=== PATIENT | female | born 1945 | race Hispanic/Latino ===

== ENCOUNTER 2020-10-08 07:12 | Day surgery (SDC) | payer MEDICARE ==
[2020-10-07 14:18] LABS: Absolute Lymphocytes (CBC) 2.7 K/uL (0.7-4.9); Basophils % 0.9 % (0-1.3); Hematocrit 35.8 % (36.0-45.0); Lymphocytes % 34.6 % (15.3-44.8); MPV 8.9 fL (7.6-11.3); RBC Red Blood Cell Count 4.01 M/uL (3.86-4.86)
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
[2020-10-07 14:38] LABS: Potassium 3.1 mmol/L (3.5-5.1)
[2020-10-08] MEDS ORDERED: LIDOCAINE 1% MPF 30 ML VIAL ONE (07:44)
[2020-10-08] MEDS ORDERED: CEFAZOLIN/SWI 1gm 1 GM/10 ML SYR ONE (07:51)
[2020-10-08] MEDS ORDERED: NA CHLORIDE 0.9% 1,000 ML ONE (07:51)
[2020-10-08] MEDS ORDERED: LIDOCAINE 1% MPF 5 ML VIAL ONE (08:39)
[2020-10-08] MEDS ORDERED: FENTANYL CITR 100 MCG/2 ML ONE (08:39)
[2020-10-08] MEDS ORDERED: propofoL 200 MG/20 ML VIAL IV ONE ×2 (08:39→08:40)
[2020-10-08] MEDS ORDERED: ONDANSETRON 4 MG/2 ML VIAL ONE (09:01)
[2020-10-08 10:08] VITALS: BP 117/57; TEMP 97.4; O2SAT 99
--- NOTE | 2020-10-08 11:22 | OP ---
Date of Procedure: 10/08/2020 Surgeon: Kar Gant MD Major Assembly Inspector: IVONE Santa. Preoperative Diagnosis: Right eye vision change, rule out temporal arteritis. Postoperative Diagnosis: Right eye vision change, rule out temporal arteritis. Procedure: Right temporal artery biopsy, utilization of a Doppler device. Estimated Blood Loss: Minimal. Specimen: Branch of the right temporal artery. Finding: As above. Anesthesia: MAC. Complications: None. Disposition: The patient tolerated the procedure in stable condition and taken to Recovery in good g eneral condition. Procedure In Detail: The patient was brought to the OR and placed in supine position. MAC anesthesi a was begun. The patient was prepped and draped in usual sterile fashion. Doppler device was used t o the isolated branch of the right temporal artery anterior and superior to the right ear and then li docaine 1% infiltrated locally. A 15-blade was used to make a 4 cm incision over the area. Subcutan eous tissue was divided. Branch of the temporal artery identified. Proximal and distal control was obtained with sharp and blunt dissection. Bleeding was controlled with cautery and then both ends ti ed off with 4-0 silk ties and then a 4 cm segment of a branch of the temporal artery excised and sent to Pathology. Wound was irrigated. Bleeding was controlled with cautery. A 4-0 chromic was used t o approximate the subcutaneous tissue and close the skin. Sterile dressing was applied. The patient was awakened and taken to Recovery in good general condition. Discharge Note: The patient will go to Day Surgery and home when stable. Disposition: Home. Condition: Stable. Discharge Instructions: Resume home medications and diet. Activity as tolerated. No heavy lifting. Remove outer dressing in 2 days. Shower. Keep wound clean and dry. Keep Steri-Strips on at all t imes. Follow up in my office in 2 weeks. Call for appointment. Follow with Dr. Shah in 1 week. Tylenol No. 3 one tablet p.o. q.4 p.r.n. pain. /MODL Voice ID: [id number] Report ID: [id number]
--- NOTE | 2020-10-09 07:41 | EKG ---
Test Date: 2020-10-07 Test Time: 13:32:39 Wheel Setter: WILLIE MEASUREMENT RESULTS: Intervals: Rate: 64 MD: 160 QRSD: 104 QT: 404 QTc: 416 [place]: P: 50 MD: 160 QRS: -1 T: 31 INTERPRETIVE STATEMENTS: Normal sinus rhythm Normal ECG Compared to ECG 01/23/2018 08:55:48 Sinus bradycardia no longer present Electronically Signed On 10-09-20 07:35:20 CDT by Yonas Vale
== END 2020-10-08 10:30 | disposition home or self-care (01) ==
LOC: OR 07:12
PROVIDERS: ATTEND Surgery
PROC: 03BS0ZX Excision of Right Temporal Artery, Open Approach, Diagnostic (ICD-10-PCS; principal; 2020-10-08 08:00)
DX: H53.9 Unspecified visual disturbance (principal); I70.8 Atherosclerosis of other arteries; Z20.822 Contact with and (suspected) exposure to COVID-19
CPT/HCPCS: 37609; 93005; 85025; 80048; 36415; 82947; 88305; 71045; U0003; J2704 ×2; J3010; J0690; J7030; J2405

== ENCOUNTER 2021-04-09 16:57 | Emergency (ER) | payer OTHER ==
[2021-04-09] MEDS ORDERED: DERMABOND SKIN ADHESIVE TOP ONE (17:27)
[2021-04-09 17:53] LABS: Absolute Lymphocytes (CBC) 1.9 K/uL (0.7-4.9); Basophils % 0.8 % (0-1.3); Hematocrit 35.9 % (36.0-45.0); MPV 8.7 fL (7.6-11.3); RBC Red Blood Cell Count 4.04 M/uL (3.86-4.86)
[2021-04-09 18:01] LABS: Protime INR 1.09
[2021-04-09 18:13] LABS: ALT/SGPT 38 U/L (12-78); AST/SGOT 26 U/L (15-37); Albumin 3.4 g/dL (3.4-5.0); Alkaline Phosphatase 70 U/L (45-117); BUN Blood Urea Nitrogen 25 mg/dL (7-18); Bicarbonate 30 mmol/L (21-32); Bilirubin Direct < 0.1 mg/dL (0-0.2); Bilirubin Total 0.3 mg/dL (0.2-1.0); Glucose Level 185 mg/dL (74-106); Lipase 117 U/L (73-393); Protein, Total 7.3 g/dL (6.4-8.2); Sodium Level 140 mmol/L (136-145); Troponin (Emerg Dept Use Only) < 0.02 ng/mL (0.0-0.045)
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
[2021-04-09] MEDS ORDERED: ACETAMINOPHEN 500 MG TAB ONE (19:38)
[2021-04-09] MEDS ORDERED: IBUPROFEN 400 MG TAB ONE (19:38)
[2021-04-09 20:04] VITALS: TEMP 98.2
[2021-04-09 20:05] VITALS: BP 159/72; O2SAT 98
--- NOTE | 2021-04-11 11:46 | EKG ---
Test Date: 2021-04-09 Test Time: 17:54:06 Ironer Hand: KAREY MEASUREMENT RESULTS: Intervals: Rate: 71 SD: 150 QRSD: 92 QT: 398 QTc: 432 [place]: P: 58 SD: 150 QRS: 28 T: 55 INTERPRETIVE STATEMENTS: Sinus rhythm with premature ventricular complexes or fusion complexes Incomplete right bundle branch block Borderline ECG Compared to ECG 10/07/2020 13:32:39 Fusion complex(es) now present Ventricular premature complex(es) now present Incomplete right bundle-branch block now present Electronically Signed On 04-11-21 11:44:40 CDT by Yonas Vale
== END 2021-04-09 19:59 | disposition home or self-care (01) ==
LOC: ER 16:57
DX: S00.83XA Contusion of other part of head, initial encounter (principal); R07.9 Chest pain, unspecified; M79.662 Pain in left lower leg; M79.661 Pain in right lower leg; V49.40XA Driver injured in collision with unspecified motor vehicles in traffic accident, initial encounter; E11.9 Type 2 diabetes mellitus without complications; E03.9 Hypothyroidism, unspecified
CPT/HCPCS: 93005; 85025; 80048; 36415; 85610; 80076; 85730; 84484; 83690; 70450; 72125; 71260; 70486; 76377; 74177; 71045; 73590 ×2; 99284; Q9967

== ENCOUNTER 2021-05-04 22:13 | Emergency (ER) | payer OTHER ==
[2021-05-04] MEDS ORDERED: METHYLPREDNISOLONE 125 MG INJ ONE (22:42)
[2021-05-04] MEDS ORDERED: LEVALBUTEROL 1.25 MG/3 ML NEB ONE (22:43)
[2021-05-04 23:24] LABS: Absolute Lymphocytes (CBC) 2.9 K/uL (0.7-4.9); Basophils % 0.7 % (0-1.3); Hematocrit 38.9 % (36.0-45.0); Lymphocytes % 31.3 % (15.3-44.8); MPV 8.5 fL (7.6-11.3); RBC Red Blood Cell Count 4.28 M/uL (3.86-4.86)
[2021-05-04 23:26] LABS: Protime INR 0.98
[2021-05-04 23:41] LABS: ALT/SGPT 31 U/L (12-78); AST/SGOT 22 U/L (15-37); Albumin 3.8 g/dL (3.4-5.0); Alkaline Phosphatase 92 U/L (45-117); BUN Blood Urea Nitrogen 15 mg/dL (7-18); Bicarbonate 26 mmol/L (21-32); Bilirubin Direct < 0.1 mg/dL (0-0.2); Bilirubin Total 0.3 mg/dL (0.2-1.0); Glucose Level 143 mg/dL (74-106); NT PRO-BNP 199 pg/mL (<125); Potassium 3.5 mmol/L (3.5-5.1); Protein, Total 8.2 g/dL (6.4-8.2); Sodium Level 139 mmol/L (136-145); Troponin (Emerg Dept Use Only) < 0.02 ng/mL (0.0-0.045)
[2021-05-05 00:07] LABS: SARS-COV-2 RT PCR NEGATIVE (NEGATIVE)
--- NOTE | 2021-05-05 02:10 | ER ---
Nurse's Notes [facility] Name: Bessie Nieves Age: 75 yrs Sex: Female : 1945 Arrival Date: 05/04/2021 Time: 22:19 Bed 6 Private MD: Diagnosis: Unspecified asthma with (acute) exacerbation Presentation: 05/04 22:50 Note Breathing trt started. LS bilateral wheeze. df1 22:57 Chief complaint: Patient states: SOB starting at 2130. Coronavirus screen: Vaccine df1 status: Patient reports receiving the 2nd dose of the covid vaccine. Client denies travel out of the [place] in the last 14 days. Client presents with at least one sign or symptom that may indicate coronavirus-19. Standard/surgical mask placed on the client. Ebola Screen: Patient negative for fever greater than or equal to 101.5 degrees Fahrenheit, and additional compatible Ebola Virus Disease symptoms Patient denies exposure to infectious person. Patient denies travel to an Ebola-affected area in the 21 days before illness onset. Initial Sepsis Screen: Does the patient meet any 2 criteria? No. Patient's initial sepsis screen is negative. Does the patient have a suspected source of infection? No. Patient's initial sepsis screen is negative. Risk Assessment: Do you want to hurt yourself or someone else? Patient reports no desire to harm self or others. Onset of symptoms was May 04, 2021 at 21:30. 22:57 Method Of Arrival: Ambulatory df1 22:57 Acuity: JUSTUS 3 df1 23:17 Note Breathing trt completed. LS CTA. Resp even and unlabored. Pt states "I feel df1 better. Easier to breath". Pt to CT scan. Triage Assessment: 23:13 General: Appears uncomfortable, Behavior is calm, cooperative. Respiratory: Reports df1 shortness of breath at rest Onset: The symptoms/episode began/occurred today, the patient has mild shortness of breath. Historical: - Allergies: 23:10 No Known Allergies; df1 - Home Meds: 23:10 levothyroxine oral [Active]; Metformin Oral [Active]; Trazodone Oral [Active]; df1 - PMHx: 23:10 diabetes mellitus; Hypothyroidism; insomnia; htn; Asthma; df1 - PSHx: 23:10 back surgery; partial hepatectomy; df1 - Immunization history:: Adult Immunizations not up to date, Client reports receiving the 2nd dose of the Covid vaccine. - Social history:: Smoking status: Patient denies any tobacco usage or history of. Patient/guardian denies using alcohol, street drugs. - Family history:: not pertinent. - Hospitalizations: : No recent hospitalization is reported. Screenin:12 Abuse screen: Denies threats or abuse. Nutritional screening: No deficits noted. df1 Tuberculosis screening: No symptoms or risk factors identified. Fall Risk None identified. Assessment: 23:12 Pain: Complains of pain in right upper quadrant and right lower quadrant Pain currently df1 is 8 out of 10 on a pain scale. Cardiovascular: No deficits noted. Rhythm is regular. Respiratory: Airway is patent Respiratory effort is even, labored, Respiratory pattern is regular, symmetrical, Breath sounds with wheezes bilaterally. Vital Signs: 22:56 BP 129 / 70; Pulse 63; Resp 18; Pulse Ox 99% on R/A; df1 22:57 BP 129 / 70; Pulse 75; Resp 24; Temp 98.5; Pulse Ox 99% on R/A; Weight 65.77 kg; Height df1 5 ft. 3 in. (160.02 cm); Pain 8/10; 05/05 01:05 BP 126 / 66; Pulse 69; Resp 18; Pulse Ox 99% on R/A; Pain 0/10; df1 11 22:57 Body Mass Index 25.69 (65.77 kg, 160.02 cm) df1 ED Course: 05/04 22:19 Patient arrived in ED. bp1 22:22 Ruiz Montez MD is Attending Physician. rn 22:25 Jordi Albarran, IRAM is Primary Nurse. mr2 22:47 Procalcitonin Sent. mr2 22:47 Procalcitonin Sent. mr2 22:47 Basic Metabolic Panel Sent. mr2 22:47 BMP Sent. mr2 22:54 XRAY CXR (1 view) Sent. df1 22:55 Blood Culture Adult (2) Sent. df1 22:55 CBC with Diff Sent. df1 22:55 Hepatic Function Sent. df1 22:55 NT PRO-BNP Sent. df1 22:55 PT-INR Sent. df1 22:55 Ptt, Activated Sent. df1 22:55 Troponin (emerg Dept Use Only) Sent. df1 22:55 No provider procedures requiring assistance completed. Inserted saline lock: 18 gauge df1 in right antecubital area, using aseptic technique. 22:58 XRAY CXR (1 view) In Process Unspecified. EDMS 23:06 Triage completed. df1 23:13 Arm band placed on right wrist. df1 23:14 Patient has correct armband on for positive identification. Placed in gown. Bed in low df1 position. Call light in reach. Side rails up X 1. Adult w/ patient. school bus monitor on. Pulse ox on. NIBP on. 23:33 CT Chest For PE Angio In Process Unspecified. EDMS 05/05 01:04 Troponin (emerg Dept Use Only) Sent. df1 02:22 IV discontinued. mr2 Administered Medications: 05/04 22:54 Drug: SOLU-Medrol (methylPrednisoLONE) 125 mg Route: IVP; Site: right antecubital; df1 23:21 Follow up: Response: No adverse reaction df1 22:54 Drug: Xopenex (levalbuterol) (3) 1.25 mg Route: Inhalation; df1 23:20 Follow up: Response: Wheezing diminished df1 Outcome: 05/05 02:09 Discharge ordered by . rn 02:22 Discharged to home ambulatory. mr2 02:22 Condition: stable 02:22 Discharge instructions given to patient, Instructed on discharge instructions, follow up and referral plans. medication usage, Prescriptions given X 2. 02:22 Patient left the ED. mr2 Signatures: Dispatcher [employer] EDMS Ruiz Montez MD MD rn [place], Brittany bp1 Reynard, Mike, RN RN mr2 Regina Dwyer df1 Corrections: (The following items were deleted from the chart) 05/04 23:15 22:47 Influenza Screen (A \\T\\ B)+BA.LAB.BRZ drawn and sent. mr2 EDMS 23:17 22:47 SARS-COV-2 RT PCR+MOL.LAB.BRZ drawn and sent. mr2 EDMS 23:17 23:14 Note Breathing trt started. LS bilateral wheeze. df1 df1
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
[2021-05-05 02:29] VITALS: O2SAT 99
[2021-05-05 02:31] VITALS: TEMP 98.5
[2021-05-05 02:33] VITALS: BP 126/66
--- NOTE | 2021-05-05 12:27 | RAD REPORT ---
EXAM DESCRIPTION: Chest For Pe Angio 05/04/2021 11:50 PM HAZ TECH CLINICAL HISTORY: 75 years, Female, DYSPNEA COMPARISON: None. TECHNIQUE: Multiple transaxial tomograms of the chest were obtained from the lung apices through the lung bases utilizing 2 mm slice thickness at 2 mm interval reconstruction after the administration o f large bolus of IV contrast for complete opacification of the pulmonary arteries. Subsequent maximum intensity projection images were generated in the coronal and sagittal plane for r eview. This exam was performed according to our departmental dose-optimization protocol, which includes auto mated exposure control, adjustment of the mA and/or kV according to patient size and/or use of iterat darlene reconstruction technique. FINDINGS: The lungs parenchyma demonstrate to be clear. No masses, nodules and/or consolidations are identified. Minimal dependent atelectatic changes posterior CP angles. The trachea mainstem bronchus demonstrate to be normal. There is no significant pericardial or pleura l effusions. The thoracic aorta demonstrate intimal calcification at the aortic arch and descending portion. There is no evidence for aneurysm/or dissection. The heart is normal in size. No evidence for right ventri cular strain. There are minimal coronary artery calcifications. There is no significant mediastinal and/or hilar lymphadenopathy. The axillary regions demonstrate to be clear. Pulmonary arteries demonstrate to be normal, no intraluminal defect are seen that would suggest pulmo nary embolus. The bone windows demonstrate no significant skeletal lesions. The visualized portions of the upper abdomen demonstrate status post surgical changes of the right he patectomy. IMPRESSION: No evidence for pulmonary embolism and/or thoracic aortic dissection. Minimal coronary artery calcifications. Status post surgical changes of the right hepatectomy. Electronically signed by: Imtiaz De Guzman MD 05/04/2021 11:56 PM HAZ TECH Due to temporary technical issues with the PACS/Fluency reporting system, reports are being signed by the in house radiologist without review as a courtesy to ensure prompt reporting. The interpreting r adiologist is fully responsible for the content of the report.
--- NOTE | 2021-05-06 11:24 | EKG ---
Test Date: 2021-05-05 Test Time: 00:58:18 Box Toe Buffer: MEASUREMENT RESULTS: Intervals: Rate: 67 MD: 160 QRSD: 102 QT: 426 QTc: 450 [place]: P: 43 MD: 160 QRS: -12 T: 14 INTERPRETIVE STATEMENTS: Normal sinus rhythm Normal ECG Compared to ECG 04/09/2021 17:54:06 Fusion complex(es) no longer present Ventricular premature complex(es) no longer present Incomplete right bundle-branch block no longer present Electronically Signed On 05-06-21 11:20:40 YOUTH SUPPORT WORKER by Yonas Vale
--- NOTE | 2021-05-06 11:24 | EKG ---
Test Date: 2021-05-04 Test Time: 22:37:58 Claim Benefit Specialist: MEASUREMENT RESULTS: Intervals: Rate: 70 MA: 150 QRSD: 98 QT: 390 QTc: 421 [employer]: P: 52 MA: 150 QRS: 46 T: 47 INTERPRETIVE STATEMENTS: Normal sinus rhythm Normal ECG Compared to ECG 04/09/2021 17:54:06 Fusion complex(es) no longer present Ventricular premature complex(es) no longer present Incomplete right bundle-branch block no longer present Electronically Signed On 05-06-21 11:20:43 PHYS ASST by Yonas Vale
--- OUTSIDE RECORDS SUMMARY | 2021-05-09 17:33 | XMS REPORT | Continuity of Care Document ---
:1945 Author Organization [facility] t Address [address] [place] [address] Care Team Providers Name Role Phone Tiago WILDE Attending Clinician Unavailable ASAF Attending Clinician Unavailable Pob, Lab Main Attending Clinician Unavailable Tiago Wilde MD Attending Clinician Doctor Unassigned, Name Attending Clinician Unavailable Asaf MUNOZ Attending Clinician Only, Test Attending Clinician Unavailable JENNA Attending Clinician Unavailable 1, Lab Attending Clinician Unavailable Tiago WILDE Admitting Clinician Unavailable Tiago Wilde MD Admitting Clinician Payers Payer Name Policy Type Policy Number Effective Date Expiration Date S alicia MCKENNA/PAVEL [id number] 2019 MEDICARE ADVANTAGE 00:00:00 Problems Condition Condition Condition Status Onset Resolution Last Treating Co mments Source Name Details Category Date Date Treatment Clinician Date Hypothyroi Hypothyroi Disease Active 2017-06 U nivers dism, dism, 2-12 ity [place] d type 00 Medical Branch Type 2 Type 2 Disease Active [facility] diabetes diabetes 9-18 ity of mellitus mellitus 00:00: [place] without without 00 Medical complicati complicati Br anch on, on, without without long-term long-term current current use of use of insulin insulin Allergies, Adverse Reactions, Alerts Allergy Allergy Status Severity Reaction(s) Onset Inactive Treating Comm ents Source Name Type Date Date Clinician NO KNOWN Drug Active Univers ALLERGIE Class ity of S [facility] Social History Social Habit Start Date Stop Date Quantity Comments Source Exposure to Not sure University SARS-CoV-2 [facility] (event) Branch Tobacco use and 2020-09-09 2020-09-09 Never used Universit y of exposure 00:00:00 00:00:00 [place] [facility] Alcohol intake 2020-09-09 2020-09-09 Current University of 00:00:00 00:00:00 non-drinker of [facility] alcohol Branch (finding) Sex Ass[birth year] [facility] y of 00:00:00 00:00:00 [facility] Smoking Status Start Date Stop Date Source Never smoker [facility] Branch Medications Ordered Filled Start Stop Current Ordering Indication Dosage Frequency Signature Comments Components Source Medication Medication Date Date Medication? Clinician (SIG) Name Name blood sugar Yes Use Daily. Univers diagnostic 3-23 Dx E11.8 ity o f (ONETOUCH 00:00: [place] ULTRA BLUE 00 Medical TEST STRIP) Branch strip blood sugar Yes Use Daily. Univers diagnostic 3-23 Dx E11.8 ity o f (ONETOUCH 00:00: [place] ULTRA BLUE 00 Medical TEST STRIP) Branch strip blood sugar Yes Use Daily. Univers diagnostic 3-23 Dx E11.8 ity o f (ONETOUCH 00:00: [place] ULTRA BLUE 00 Medical TEST STRIP) Branch strip ONETOUCH Yes [id number] Use as Uni vers ULTRA2 3-16 directed ity of METER Misc 00:00: E11.65 Medical Branch ezetimibe Yes [id number] 10mg Take 1 Un sybil 10 mg 3-16 tablet by ity of tablet 00:00: mouth [place] 00 daily. Medical Branch glipiZIDE 5 Yes [id number] 5mg Take 1 Univers mg tablet 3-16 tablet by ity o f 00:00: mouth [place] 00 daily. Medical Branch levothyroxi Yes [id number] 100ug Take 1 Univers ne 100 mcg 3-16 tablet by ity of tablet 00:00: mouth [place] 00 every Medical morning. Branch metformin Yes [id number] 1000mg Take 2 Univers ER 500 mg 3-16 tablets by ity of 24 hr 00:00: mouth 2 [place] tablet 00 (two) Medical times Branch daily. ONETOUCH Yes [id number] Use as Uni vers ULTRA2 3-16 directed ity of METER Misc 00:00: E11.65 Medical Branch ezetimibe 2020- Yes [id number] 10mg Take 1 Un sybil 10 mg 3-16 tablet by ity of tablet 00:00: mouth [place] 00 daily. Medical Branch glipiZIDE 5 0 Yes [id number] 5mg Take 1 [facility] mg tablet 3-16 tablet by ity o f 00:00: mouth [place] 00 daily. Medical Branch levothyroxi 2020-0 Yes [id number] 100ug Take 1 Univers ne 100 mcg 3-16 tablet by ity of tablet 00:00: mouth [place] 00 every Medical morning. Branch metformin 2020-0 Yes [id number] 1000mg Take 2 Univers ER 500 mg 3-16 tablets by ity of 24 hr 00:00: mouth 2 [place] tablet 00 (two) Medical times Branch daily. ONETOUCH 2020- Yes [id number] Use as Uni vers ULTRA2 3-16 directed ity of METER Misc 00:00: E11.65 [place] 00 Medical Branch ezetimibe 2020-0 Yes [id number] 10mg Take 1 Un sybil 10 mg 3-16 tablet by ity of tablet 00:00: mouth [place] 00 daily. Medical Branch glipiZIDE 5 0 Yes [id number] 5mg Take 1 Univers mg tablet 3-16 tablet by ity o f 00:00: mouth [place] 00 daily. Medical Branch levothyroxi 0 Yes [id number] 100ug Take 1 Univers ne 100 mcg 3-16 tablet by ity of tablet 00:00: mouth [place] 00 every Medical morning. Branch metformin 2020-0 Yes [id number] 1000mg Take 2 Univers ER 500 mg 3-16 tablets by ity of 24 hr 00:00: mouth 2 [place] tablet 00 (two) Medical times Branch daily. ONETOUCH 2020-0 Yes [id number] Use as Uni vers ULTRA2 3-16 directed ity of METER Misc 00:00: E11.65 [place] 00 Medical Branch ezetimibe 2020-0 Yes [id number] 10mg Take 1 Un sybil 10 mg 3-16 tablet by ity of tablet 00:00: mouth [place] 00 daily. Medical Branch glipiZIDE 5 2020-0 Yes [id number] 5mg Take 1 Univers mg tablet 3-16 tablet by ity o f 00:00: mouth [place] 00 daily. Medical Branch levothyroxi 2020-0 Yes [id number] 100ug Take 1 Univers ne 100 mcg 3-16 tablet by ity of tablet 00:00: mouth [place] 00 every Medical morning. Branch metformin Yes [id number] 1000mg Take 2 Univers ER 500 mg 3-16 tablets by ity of 24 hr 00:00: mouth 2 [place] tablet 00 (two) Medical times Branch daily. ONETOUCH Yes [id number] Use as Uni vers ULTRA2 3-16 directed ity of METER Misc 00:00: E11.65 [place] 00 Medical Branch ezetimibe Yes [id number] 10mg Take 1 Un sybil 10 mg 3-16 tablet by ity of tablet 00:00: mouth [place] 00 daily. Medical Branch glipiZIDE 5 Yes [id number] 5mg Take 1 Univers mg tablet 3-16 tablet by ity o f 00:00: mouth [place] 00 daily. Medical Branch levothyroxi Yes [id number] 100ug Take 1 Univers ne 100 mcg 3-16 tablet by ity of tablet 00:00: mouth [place] 00 every Medical morning. Branch metformin Yes [id number] 1000mg Take 2 Univers ER 500 mg 3-16 tablets by ity of 24 hr 00:00: mouth 2 [place] tablet 00 (two) Medical times Branch daily. lipase/prot 2019- Yes Take by Un sybil ease/amylas 0-14 mouth. ity of e (CREON 16:50: [place] ORAL) 07 Medical Branch OMEPRAZOLE 2019-06 Yes 40mg Take 40 mg U nivers ORAL 0-14 by mouth. ity of 16:50: [place] 07 Medical Branch lipase/prot 2019- Yes Take by Un sybil ease/amylas 0-14 mouth. ity of e (CREON 16:50: [place] ORAL) Medical Branch OMEPRAZOLE 2020- Yes 40mg Take 40 mg U nivers ORAL 0-14 by mouth. ity of 16:50: [place] 07 Medical Branch lipase/prot 2019- Yes Take by Un sybil ease/amylas 0-14 mouth. ity of e (CREON 16:50: [place] ORAL) Medical Branch OMEPRAZOLE 2020- Yes 40mg Take 40 mg U nivers ORAL 0-14 by mouth. ity of 16:50: [place] 07 Medical Branch lipase/prot 2020- Yes Take by Un sybil ease/amylas 0-14 mouth. ity of e (CREON 16:50: [place] ORAL) 07 Medical Branch OMEPRAZOLE 2020-1 Yes 40mg Take 40 mg U nivers ORAL 0-14 by mouth. ity of 16:50: [address] lipase/prot 2019-06 Yes Take by Un sybil ease/amylas 0-14 mouth. ity of e (CREON 16:50: [place] ORAL) [address] [place] [address] OMEPRAZOLE 2019-06 Yes 40mg Take 40 mg U nivers ORAL 0-14 by mouth. ity of 16:50: [address] lipase/prot 2019-06 Yes Take by Un sybil ease/amylas 0-14 mouth. ity of e (CREON 16:50: [place] ORAL) [address] [place] [address] OMEPRAZOLE 2019-06 Yes 40mg Take 40 mg U nivers ORAL 0-14 by mouth. ity of 16:50: [address] lipase/prot 2019-06 Yes Take by Un sybil ease/amylas 0-14 mouth. ity of e (CREON 16:50: [place] ORAL) [address] [place] [address] OMEPRAZOLE 2019-06 Yes 40mg Take 40 mg U nivers ORAL 0-14 by mouth. ity of 16:50: [address] lipase/prot 2019-06 Yes Take by Un sybil ease/amylas 0-14 mouth. ity of e (CREON 16:50: [place] ORAL) [address] [place] [address] OMEPRAZOLE 2019-06 Yes 40mg Take 40 mg U nivers ORAL 0-14 by mouth. ity of 16:50: [address] lipase/prot 2019-06 Yes Take by Un sybil ease/amylas 0-14 mouth. ity of e (CREON 16:50: [place] ORAL) [address] [place] [address] OMEPRAZOLE 2019-06 Yes 40mg Take 40 mg U nivers ORAL 0-14 by mouth. ity of 16:50: [address] water for 2019-06 Yes PRN, Univers irrigation 0-14 Starting ity o f irrigation 14:56: Wed [place] solution 00 04/09/20 Medical at 0956, [place] Until Discontinu ed, Routine, Intra-op simethicone 2019-06 Yes PRN, Univer s (GAS RELIEF 0-14 Starting ity of (SIMETHICON 14:56: Wed [place] E)) 40 00 04/09/20 Medical mg/0.6 mL at 0956, [place] drops Until Discontinu ed, Routine, Intra-op lactated 2019-06 2020- No 1000mL at 42 Unive rs ringers IV 0-14 10-14 mL/hr, ity of infusion 14:30: 14:36 1,000 mL, [place] as 1,000 mL 00 :00 IV Medical Infusion, Branch ONCE, 1 dose, 04/09/20 at 0930, Routine, DSU Pre-op lipase/prot 2019- Yes Take by Un sybil ease/amylas 0-12 mouth. ity of e (CREON 17:42: [place] ORAL) 37 Medical Branch OMEPRAZOLE 2019-1 Yes 40mg Take 40 mg U nivers ORAL 0-12 by mouth. ity of 17:42: [place] 37 Medical Branch olmesartan 2019-0 2020- No 20mg Take 20 mg Univers 20 mg -18 03- by mouth ity of tablet 23:42: 00:00 daily. [place] 41 :00 Medical Branch olmesartan 2019-0 2020- No 20mg Take 20 mg Univers 20 mg -18 03- by mouth ity of tablet 23:42: 00:00 daily. [place] 41 :00 Medical Branch atorvastati 2019-0 2020- No 10mg Take 10 mg Univers n 10 mg 9-18 03-22 by mouth ity of tablet 20:16: 00:00 at [place] 20 :00 bedtime. Medical Branch atorvastati 2019-0 2020- No 10mg Take 10 mg Univers n 10 mg -18 03- by mouth ity of tablet 20:16: 00:00 at [place] 20 :00 bedtime. Medical Branch levothyroxi 2020-0 Yes [id number] 100ug Take 1 Univers ne 100 mcg 9-22 tablet by ity of tablet 00:00: mouth [place] 00 every Medical morning. Branch metformin 2019-0 Yes [id number] 1000mg Take 2 Univers ER 500 mg 9-22 tablets by ity of 24 hr 00:00: mouth 2 [place] tablet 00 (two) Medical times Branch daily. glipiZIDE 5 2020-0 Yes [id number] 5mg Take 1 Univers mg tablet 9-22 tablet by ity o f 00:00: mouth [place] 00 daily. Medical Branch ezetimibe 2019-0 Yes [id number] 10mg Take 1 Un sybil 10 mg 9-22 tablet by ity of tablet 00:00: mouth [place] 00 daily. Medical Branch levothyroxi 2019-0 Yes [id number] 100ug Take 1 Univers ne 100 mcg 9-22 tablet by ity of tablet 00:00: mouth [place] 00 every Medical morning. Branch metformin 2020-0 Yes [id number] 1000mg Take 2 Univers ER 500 mg 9-22 tablets by ity of 24 hr 00:00: mouth 2 [place] tablet 00 (two) Medical times Branch daily. glipiZIDE 5 2020-0 Yes [id number] 5mg Take 1 Univers mg tablet 9-22 tablet by ity o f 00:00: mouth [place] 00 daily. Medical Branch ezetimibe 2020-0 Yes [id number] 10mg Take 1 Un sybil 10 mg 9-22 tablet by ity of tablet 00:00: mouth [place] 00 daily. Medical Branch levothyroxi 2020-0 Yes [id number] 100ug Take 1 Univers ne 100 mcg 9-22 tablet by ity of tablet 00:00: mouth [place] 00 every Medical morning. Branch metformin 2020-0 Yes [id number] 1000mg Take 2 Univers ER 500 mg 9-22 tablets by ity of 24 hr 00:00: mouth 2 [place] tablet 00 (two) Medical times Branch daily. glipiZIDE 5 2020-0 Yes [id number] 5mg Take 1 Univers mg tablet 9-22 tablet by ity o f 00:00: mouth [place] 00 daily. Medical Branch ezetimibe 2020-0 Yes [id number] 10mg Take 1 Un sybil 10 mg 9-22 tablet by ity of tablet 00:00: mouth [place] 00 daily. Medical Branch levothyroxi 2020-0 Yes [id number] 100ug Take 1 Univers ne 100 mcg 9-22 tablet by ity of tablet 00:00: mouth [place] 00 every Medical morning. Branch metformin 2020-0 Yes [id number] 1000mg Take 2 Univers ER 500 mg 9-22 tablets by ity of 24 hr 00:00: mouth 2 [place] tablet 00 (two) Medical times Branch daily. glipiZIDE 5 2020-0 Yes [id number] 5mg Take 1 Univers mg tablet 9-22 tablet by ity o f 00:00: mouth [place] 00 daily. Medical Branch ezetimibe 2020-0 Yes [id number] 10mg Take 1 Un sybil 10 mg 9-22 tablet by ity of tablet 00:00: mouth [place] 00 daily. Medical Branch levothyroxi 2020-0 Yes [id number] 100ug Take 1 Univers ne 100 mcg 9-22 tablet by ity of tablet 00:00: mouth [place] 00 every Medical morning. Branch metformin 2020-0 Yes [id number] 1000mg Take 2 Univers ER 500 mg 9-22 tablets by ity of 24 hr 00:00: mouth 2 [place] tablet 00 (two) Medical times Branch daily. glipiZIDE 5 2020-0 Yes [id number] 5mg Take 1 Univers mg tablet 9-22 tablet by ity o f 00:00: mouth [place] 00 daily. Medical Branch ezetimibe 2020-0 Yes [id number] 10mg Take 1 Un sybil 10 mg 9-22 tablet by ity of tablet 00:00: mouth [place] 00 daily. Medical Branch levothyroxi 2020-0 Yes [id number] 100ug Take 1 Univers ne 100 mcg 9-22 tablet by ity of tablet 00:00: mouth [place] 00 every Medical morning. Branch metformin 2020-0 Yes [id number] 1000mg Take 2 Univers ER 500 mg 9-22 tablets by ity of 24 hr 00:00: mouth 2 [place] tablet 00 (two) Medical times Branch daily. glipiZIDE 5 2020-0 Yes [id number] 5mg Take 1 Univers mg tablet 9-22 tablet by ity o f 00:00: mouth [place] 00 daily. Medical Branch ezetimibe 2020-0 Yes [id number] 10mg Take 1 Un sybil 10 mg 9-22 tablet by ity of tablet 00:00: mouth [place] 00 daily. Medical Branch levothyroxi 2020-0 Yes [id number] 100ug Take 1 Univers ne 100 mcg 9-22 tablet by ity of tablet 00:00: mouth [place] 00 every Medical morning. Branch metformin 2020-0 Yes [id number] 1000mg Take 2 Univers ER 500 mg 9-22 tablets by ity of 24 hr 00:00: mouth 2 [place] tablet 00 (two) Medical times Branch daily. glipiZIDE 5 2020-0 Yes [id number] 5mg Take 1 Univers mg tablet 9-22 tablet by ity o f 00:00: mouth [place] 00 daily. Medical Branch ezetimibe 2020-0 Yes [id number] 10mg Take 1 Un sybil 10 mg 9-22 tablet by ity of tablet 00:00: mouth [place] 00 daily. Medical Branch levothyroxi 2020-0 Yes [id number] 100ug Take 1 Univers ne 100 mcg 9-22 tablet by ity of tablet 00:00: mouth [place] 00 every Medical morning. Branch metformin 2019-0 Yes [id number] 1000mg Take 2 Univers ER 500 mg 9-22 tablets by ity of 24 hr 00:00: mouth 2 [place] tablet 00 (two) Medical times Branch daily. glipiZIDE 5 Yes [id number] 5mg Take 1 Univers mg tablet 9-22 tablet by ity o f 00:00: mouth [place] 00 daily. Medical Branch ezetimibe Yes [id number] 10mg Take 1 Un sybil 10 mg -22 tablet by ity of tablet 00:00: mouth [place] 00 daily. Medical Branch levothyroxi 2020- No [id number] 100ug Take 1 Univers ne 100 mcg 03-18-16 tablet by ity of tablet 00:00: 00:00 mouth [place] 00 :00 every Medical morning. Branch metformin 2020- No [id number] 1000mg Take 2 Univers ER 500 mg 03-18-16 tablets by ity of 24 hr 00:00: 00:00 mouth 2 [place] tablet 00 :00 (two) Medical times Branch daily. glipiZIDE 5 2020- No [id number] 5mg Take 1 Univers mg tablet 03-18-16 tablet by ity of 00:00: 00:00 mouth [place] 00 :00 daily. Medical Branch ezetimibe 2020- No [id number] 10mg Take 1 U nivers 10 mg 03-18-16 tablet by ity of tablet 00:00: 00:00 mouth [place] 00 :00 daily. Medical Branch levothyroxi 2020- No [id number] 100ug Take 1 Univers ne 100 mcg 03-1816 tablet by ity of tablet 00:00: 00:00 mouth [place] 00 :00 every Medical morning. Branch metformin 2020- No [id number] 1000mg Take 2 Univers ER 500 mg 03-18-16 tablets by ity of 24 hr 00:00: 00:00 mouth 2 [place] tablet 00 :00 (two) Medical times Branch daily. glipiZIDE 5 2020- No [id number] 5mg Take 1 Univers mg tablet 03-18-16 tablet by ity of 00:00: 00:00 mouth [place] 00 :00 daily. Medical Branch ezetimibe 2020- No [id number] 10mg Take 1 U nivers 10 mg 03-18 03-16 tablet by ity of tablet 00:00: 00:00 mouth [place] 00 :00 daily. Medical Branch Blood Sugar 2020-0 Yes Use as Univ ers Diagnostic, 01-27 directed ity of Disc Strp 00:00: [place] 00 blood Medical sugar BID Branch DX: E11.8 Blood Sugar 2020-0 Yes Use as Univ ers Diagnostic, 01-27 directed ity of Disc Strp 00:00: [place] 00 blood Medical sugar BID Branch DX: E11.8 Blood Sugar 2020-0 Yes Use as Univ ers Diagnostic, 01-27 directed ity of Disc Strp 00:00: [place] 00 blood Medical sugar BID Branch DX: E11.8 Blood Sugar 2020-0 Yes Use as Univ ers Diagnostic, 01-27 directed ity of Disc Strp 00:00: to [place] 00 blood Medical sugar BID Branch DX: E11.8 Blood Sugar 2020-0 Yes Use as Univ ers Diagnostic, 01-27 directed ity of Disc Strp 00:00: to [place] 00 blood Medical sugar BID Branch DX: E11.8 Blood Sugar 2020-0 Yes Use as Univ ers Diagnostic, 01-27 directed ity of Disc Strp 00:00: to [place] 00 blood Medical sugar BID Branch DX: E11.8 Blood Sugar 2020-0 Yes Use as Univ ers Diagnostic, 01-27 directed ity of Disc Strp 00:00: to [place] 00 blood Medical sugar BID Branch DX: E11.8 Blood Sugar 2020-0 Yes Use as Univ ers Diagnostic, 01-27 directed ity of Disc Strp 00:00: to [place] 00 blood Medical sugar BID Branch DX: E11.8 Blood Sugar 2020-0 Yes Use as Univ ers Diagnostic, 01-27 directed ity of Disc Strp 00:00: to [place] 00 blood Medical sugar BID Branch DX: E11.8 Blood Sugar 2020-0 Yes Use as Univ ers Diagnostic, 01-27 directed ity of Disc Strp 00:00: to [place] 00 blood Medical sugar BID Branch DX: E11.8 Blood Sugar 2020-0 Yes Use as Univ ers Diagnostic, 01-27 directed ity of Disc Strp 00:00: to [place] 00 blood Medical sugar BID Branch DX: E11.8 Blood Sugar 2020-0 Yes Use as Univ ers Diagnostic, 01-27 directed ity of Disc Strp 00:00: to [place] 00 blood Medical sugar BID Branch DX: E11.8 Blood Sugar 2020-0 Yes Use as Univ ers Diagnostic, 01-27 directed ity of Disc Strp 00:00: to [place] 00 blood Medical sugar BID Branch DX: E11.8 Blood Sugar 2020-0 Yes Use as Univ ers Diagnostic, 01-27 directed ity of Disc Strp 00:00: to [place] 00 blood Medical sugar BID Branch DX: E11.8 Blood Sugar 2020-0 Yes Use as Univ ers Diagnostic, 01-27 directed ity of Disc Strp 00:00: to [place] 00 blood Medical sugar BID Branch DX: E11.8 glimepiride 2020-0 Yes [id number] 2mg Take 1 Univers 2 mg tablet 5-19 tablet by ity of 00:00: mouth [place] 00 daily with Medical breakfast. Branch levothyroxi 2020-0 Yes [id number] 100ug Take 1 [facility] ne 100 mcg 5-19 tablet by ity of tablet 00:00: mouth [place] 00 every Medical morning. Branch metformin 2020-0 Yes [id number] 1000mg Take 2 Univers ER 500 mg 5-19 tablets by ity of 24 hr 00:00: mouth 2 [place] tablet 00 (two) Medical times Branch daily. glimepiride 2020-0 Yes [id number] 2mg Take 1 Univers 2 mg tablet 5-19 tablet by ity of 00:00: mouth [place] 00 daily with Medical breakfast. Branch levothyroxi 2020-0 Yes [id number] 100ug Take 1 [facility] ne 100 mcg 5-19 tablet by ity of tablet 00:00: mouth [place] 00 every Medical morning. Branch metformin 2020-0 Yes [id number] 1000mg Take 2 Univers ER 500 mg 5-19 tablets by ity of 24 hr 00:00: mouth 2 [place] tablet 00 (two) Medical times Branch daily. glimepiride 2020-0 Yes [id number] 2mg Take 1 Univers 2 mg tablet 5-19 tablet by ity of 00:00: mouth [place] 00 daily with Medical breakfast. Branch levothyroxi 2020-0 Yes [id number] 100ug Take 1 [facility] ne 100 mcg 5-19 tablet by ity of tablet 00:00: mouth [place] 00 every Medical morning. Branch metformin 2020-0 Yes [id number] 1000mg Take 2 Univers ER 500 mg - tablets by ity of 24 hr 00:00: mouth 2 [place] tablet 00 (two) Medical times Branch daily. glimepiride 2019- 2020- No [id number] 2mg Take 1 Univers 2 mg tablet 11-12 tablet by it y of 00:00: 00:00 mouth [place] 00 :00 daily with Medical breakfast. Branch levothyroxi 2019- 2020- No [id number] 100ug Take 1 Univers ne 100 mcg 11-12 tablet by ity of tablet 00:00: 00:00 mouth [place] 00 :00 every Medical morning. Branch metformin 2019- 2020- No [id number] 1000mg Take 2 Univers ER 500 mg 11-12- tablets by ity of 24 hr 00:00: 00:00 mouth 2 [place] tablet 00 :00 (two) Medical times Branch daily. glimepiride 2019- 2020- No [id number] 2mg Take 1 Univers 2 mg tablet 11-12 tablet by it y of 00:00: 00:00 mouth [place] 00 :00 daily with Medical breakfast. Branch levothyroxi 2020- No [id number] 100ug Take 1 Univers ne 100 mcg 11-12 tablet by ity of tablet 00:00: 00:00 mouth [place] 00 :00 every Medical morning. Branch metformin 2019-0 2020- No [id number] 1000mg Take 2 Univers ER 500 mg 11-12- tablets by ity of 24 hr 00:00: 00:00 mouth 2 [place] tablet 00 :00 (two) Medical times Branch daily. metformin 2019-0 Yes [id number] 1000mg Take 2 Univers ER 500 mg 3-27 tablets by ity of 24 hr 00:00: mouth 2 [place] tablet 00 (two) Medical times Branch daily. metformin 2019-0 2020- No [id number] 1000mg Take 2 Univers ER 500 mg 3-27 05-19 tablets by ity of 24 hr 00:00: 00:00 mouth 2 [place] tablet 00 :00 (two) Medical times Branch daily. LEVOTHYROXI 2019-0 Yes [id number] TAKE ONE Univers NE 100 mcg 3-16 TABLET BY ity of tablet 00:00: MOUTH [place] 00 EVERY Medical MORNING Branch LEVOTHYROXI 2020-0 Yes [id number] TAKE ONE Univers NE 100 mcg 3-16 TABLET BY ity of tablet 00:00: MOUTH [place] 00 EVERY Medical MORNING Branch LEVOTHYROXI 2019-0 2020- No [id number] TAKE ONE Univers NE 100 mcg 3-16 05-19 TABLET BY ity of tablet 00:00: 00:00 MOUTH [place] 00 :00 EVERY Medical MORNING Branch sAXagliptin 2019-0 Yes [id number] TAKE TWO Univers -metformin 3-04 TABLETS BY ity of (KOMBIGLYZE 00:00: MOUTH [place] XR) 00 EVERY Medical 2.5-1,000 MORNING Branch mg per tablet sAXagliptin 0 Yes [id number] TAKE TWO Univers -metformin 3-04 TABLETS BY ity of (KOMBIGLYZE 00:00: MOUTH [place] XR) 00 EVERY Medical 2.5-1,000 MORNING Branch mg per tablet sAXagliptin 2020- No [id number] TAKE TWO [facility] -metformin 3-04 03-27 TABLETS BY it y of (KOMBIGLYZE 00:00: 00:00 MOUTH [place] XR) 00 :00 EVERY Medical 2.5-1,000 MORNING Branch mg per tablet glimepiride 2018-06 Yes [id number] 2mg Take 1 Univers 2 mg tablet 1-19 tablet by ity of 00:00: mouth [place] 00 daily with Medical breakfast. [place] glimepiride 2018-06 Yes [id number] 2mg Take 1 Univers 2 mg tablet 1-19 tablet by ity of 00:00: mouth [place] 00 daily with Medical breakfast. [place] glimepiride 2018-06 Yes [id number] 2mg Take 1 Univers 2 mg tablet 1-19 tablet by ity of 00:00: mouth [place] 00 daily with Medical breakfast. [place] glimepiride 2018-06 Yes [id number] 2mg Take 1 Univers 2 mg tablet 1-19 tablet by ity of 00:00: mouth [place] 00 daily with Medical breakfast. [place] glimepiride 2018-06 Yes [id number] 2mg Take 1 Univers 2 mg tablet 1-19 tablet by ity of 00:00: mouth [place] 00 daily with Medical breakfast. [place] glimepiride 2018-06 Yes [id number] 2mg Take 1 [facility] 2 mg tablet 1-19 tablet by ity of 00:00: mouth [place] 00 daily with Medical breakfast. [place] glimepiride 2018-06 Yes [id number] 2mg Take 1 Univers 2 mg tablet 1-19 tablet by ity of 00:00: mouth [place] 00 daily with Medical breakfast. Branch glimepiride 2018-06 2020- No [id number] 2mg Take 1 Univers 2 mg tablet 1-19 05-19 tablet by it y of 00:00: 00:00 mouth [place] 00 :00 daily with Medical breakfast. Branch KOMBIGLYZE 2018-06 Yes [id number] TAKE TWO Univers XR 1-18 TABLETS BY ity of 2.5-1,000 00:00: MOUTH [place] mg per 00 EVERY Medical tablet MORNING Branch YAAKOVIGLYZE 2018-06 Yes [id number] TAKE TWO Univers XR 1-18 TABLETS BY ity of 2.5-1,000 00:00: MOUTH [place] mg per 00 EVERY Medical tablet MORNING [place] ANITHAYZE 2018-06 Yes [id number] TAKE TWO Univers XR 1-18 TABLETS BY ity of 2.5-1,000 00:00: MOUTH [place] mg per 00 EVERY Medical tablet MORNING [place] ANITHAYZE 2018-06 2020- No [id number] TAKE TWO Univers XR 1-18 03-04 TABLETS BY ity of 2.5-1,000 00:00: 00:00 MOUTH [place] mg per 00 :00 EVERY Medical tablet MORNING Branch atorvastati Yes 10mg Take 10 mg Univers n 10 mg 7-17 by mouth ity of tablet 18:44: at [place] [address] bedtime. Medical Branch olmesartan Yes 20mg Take 20 mg U nivers 20 mg 7-17 by mouth ity of tablet 18:44: daily. [place] [address] Medical Branch lipase/prot Yes Take by Un sybil ease/amylas 7-17 mouth. ity of e (CREON 18:44: [place] ORAL) 45 Medical Branch atorvastati Yes 10mg Take 10 mg Univers n 10 mg 7-17 by mouth ity of tablet 18:44: at [place] [address] bedtime. Medical Branch olmesartan Yes 20mg Take 20 mg U nivers 20 mg 7-17 by mouth ity of tablet 18:44: daily. [place] [address] Medical Branch lipase/prot 0 Yes Take by Un sybil ease/amylas 7-17 mouth. ity of e (CREON 18:44: [place] ORAL) 45 Medical Branch atorvastati Yes 10mg Take 10 mg Univers n 10 mg 7-17 by mouth ity of tablet 18:44: at [place] [address] bedtime. Medical Branch olmesartan Yes 20mg Take 20 mg U nivers 20 mg 7-17 by mouth ity of tablet 18:44: daily. Medical Branch lipase/prot 0 Yes Take by Un sybil ease/amylas 7-17 mouth. ity of e (CREON 18:44: [place] ORAL) 45 Medical Branch atorvastati Yes 10mg Take 10 mg Univers n 10 mg 7-17 by mouth ity of tablet 18:44: at [place] [address] bedtime. Medical Branch olmesartan Yes 20mg Take 20 mg U nivers 20 mg 7-17 by mouth ity of tablet 18:44: daily. Medical Branch lipase/prot 0 Yes Take by Un sybil ease/amylas 7-17 mouth. ity of e (CREON 18:44: [place] ORAL) 45 Medical Branch atorvastati Yes 10mg Take 10 mg Univers n 10 mg 7-17 by mouth ity of tablet 18:44: at [place] [address] bedtime. Medical Branch olmesartan Yes 20mg Take 20 mg U nivers 20 mg 7-17 by mouth ity of tablet 18:44: daily. Medical Branch lipase/prot 0 Yes Take by Un sybil ease/amylas 7-17 mouth. ity of e (CREON 18:44: [place] ORAL) 45 Medical Branch atorvastati Yes 10mg Take 10 mg Univers n 10 mg 7-17 by mouth ity of tablet 18:44: at [place] [address] bedtime. Medical Branch olmesartan Yes 20mg Take 20 mg U nivers 20 mg 7-17 by mouth ity of tablet 18:44: daily. Medical Branch lipase/prot 0 Yes Take by Un sybil ease/amylas 7-17 mouth. ity of e (CREON 18:44: [place] ORAL) 45 Medical Branch atorvastati Yes 10mg Take 10 mg Univers n 10 mg 7-17 by mouth ity of tablet 18:44: at [place] [address] bedtime. Medical Branch olmesartan Yes 20mg Take 20 mg U nivers 20 mg 7-17 by mouth ity of tablet 18:44: daily. [place] [address] Medical Branch lipase/prot 2018-0 Yes Take by Un sybil ease/amylas 7-17 mouth. ity of e (CREON 18:44: [place] ORAL) 45 Medical Branch atorvastati Yes 10mg Take 10 mg Univers n 10 mg 7-17 by mouth ity of tablet 18:44: at [place] [address] bedtime. Medical Branch olmesartan Yes 20mg Take 20 mg U nivers 20 mg 7-17 by mouth ity of tablet 18:44: daily. [place] 45 Medical Branch lipase/prot 0 Yes Take by Un sybil ease/amylas 7-17 mouth. ity of e (CREON 18:44: [place] ORAL) 45 Medical Branch lipase/prot Yes Take by Un sybil ease/amylas 7-17 mouth. ity of e (CREON 18:44: [place] ORAL) 45 Medical Branch lipase/prot Yes Take by Un sybil ease/amylas 7-17 mouth. ity of e (CREON 18:44: [place] ORAL) 45 Medical Branch lipase/prot Yes Take by Un sybil ease/amylas 7-17 mouth. ity of e (CREON 18:44: [place] ORAL) 45 Medical Branch atorvastati Yes 10mg Take 10 mg Univers n 10 mg 7-17 by mouth ity of tablet 18:44: at [place] [address] bedtime. Medical Branch olmesartan 0 Yes 20mg Take 20 mg U nivers 20 mg 7-17 by mouth ity of tablet 18:44: daily. [place] 45 Medical Branch lipase/prot Yes Take by Un sybil ease/amylas 7-17 mouth. ity of e (CREON 18:44: [place] ORAL) 45 Medical Branch atorvastati Yes 10mg Take 10 mg Univers n 10 mg 7-17 by mouth ity of tablet 18:44: at [place] [address] bedtime. Medical Branch olmesartan 0 Yes 20mg Take 20 mg U nivers 20 mg 7-17 by mouth ity of tablet 18:44: daily. [place] 45 Medical Branch lipase/prot 0 Yes Take by Un sybil ease/amylas 7-17 mouth. ity of e (CREON 18:44: [place] ORAL) 45 Medical Branch atorvastati Yes 10mg Take 10 mg Univers n 10 mg 7-17 by mouth ity of tablet 18:44: at [place] [address] bedtime. Medical Branch olmesartan Yes 20mg Take 20 mg U nivers 20 mg 7-17 by mouth ity of tablet 18:44: daily. [place] [address] Medical Branch lipase/prot Yes Take by Un sybil ease/amylas 7-17 mouth. ity of e (CREON 18:44: [place] ORAL) 45 Medical Branch atorvastati Yes 10mg Take 10 mg Univers n 10 mg 7-17 by mouth ity of tablet 18:44: at [place] [address] bedtime. Medical Branch olmesartan Yes 20mg Take 20 mg U nivers 20 mg 7-17 by mouth ity of tablet 18:44: daily. [place] [address] Medical Branch lipase/prot Yes Take by Un sybil ease/amylas 7-17 mouth. ity of e (CREON 18:44: [place] ORAL) 45 Medical Branch atorvastati Yes 10mg Take 10 mg Univers n 10 mg 7-17 by mouth ity of tablet 18:44: at [place] [address] bedtime. Medical Branch olmesartan Yes 20mg Take 20 mg U nivers 20 mg 7-17 by mouth ity of tablet 18:44: daily. [place] [address] Medical Branch lipase/prot Yes Take by Un sybil ease/amylas 7-17 mouth. ity of e (CREON 18:44: [place] ORAL) 45 Medical Branch atorvastati Yes 10mg Take 10 mg Univers n 10 mg 7-17 by mouth ity of tablet 18:44: at [place] [address] bedtime. Medical Branch olmesartan Yes 20mg Take 20 mg U nivers 20 mg 7-17 by mouth ity of tablet 18:44: daily. [place] [facility] lipase/prot 0 Yes Take by Un sybil ease/amylas 7-17 mouth. ity of e (CREON 18:44: [place] ORAL) 45 Medical Branch levothyroxi Yes [id number] 100ug Take 1 Univers ne 100 mcg 7-17 tablet by ity of tablet 00:00: mouth [place] 00 every Medical morning. Branch levothyroxi Yes [id number] 100ug Take 1 Univers ne 100 mcg 7-17 tablet by ity of tablet 00:00: mouth [place] 00 every Medical morning. Branch levothyroxi 2019-0 Yes [id number] 100ug Take 1 Univers ne 100 mcg 7-17 tablet by ity of tablet 00:00: mouth [place] 00 every Medical morning. Branch sAXagliptin 2018- Yes [id number] 2{tbl} Take 2 Univers -metformin 7-17 tablets by ity of (KOMBIGLYZE 00:00: mouth [place] XR) 00 every Medical 2.5-1,000 morning. Branch mg per tablet levothyroxi 2018-0 Yes [id number] 100ug Take 1 Univers ne 100 mcg 7-17 tablet by ity of tablet 00:00: mouth [place] 00 every Medical morning. Branch sAXagliptin Yes [id number] 2{tbl} Take 2 Univers -metformin 7-17 tablets by ity of (KOMBIGLYZE 00:00: mouth [place] XR) 00 every Medical 2.5-1,000 morning. Branch mg per tablet levothyroxi 2018- Yes [id number] 100ug Take 1 Univers ne 100 mcg 7-17 tablet by ity of tablet 00:00: mouth [place] 00 every Medical morning. Branch sAXagliptin Yes [id number] 2{tbl} Take 2 Univers -metformin 7-17 tablets by ity of (KOMBIGLYZE 00:00: mouth [place] XR) 00 every Medical 2.5-1,000 morning. Branch mg per tablet levothyroxi 2018-0 Yes [id number] 100ug Take 1 Univers ne 100 mcg 7-17 tablet by ity of tablet 00:00: mouth [place] 00 every Medical morning. Branch sAXagliptin Yes [id number] 2{tbl} Take 2 Univers -metformin 7-17 tablets by ity of (KOMBIGLYZE 00:00: mouth [place] XR) 00 every Medical 2.5-1,000 morning. Branch mg per tablet levothyroxi 2019-0 Yes [id number] 100ug Take 1 Univers ne 100 mcg 7-17 tablet by ity of tablet 00:00: mouth [place] 00 every Medical morning. Branch levothyroxi 2018-0 Yes [id number] 100ug Take 1 Univers ne 100 mcg 7-17 tablet by ity of tablet 00:00: mouth [place] 00 every Medical morning. Branch levothyroxi 2018-0 Yes [id number] 100ug Take 1 Univers ne 100 mcg 7-17 tablet by ity of tablet 00:00: mouth [place] 00 every Medical morning. Branch levothyroxi 2020- No [id number] 100ug Take 1 Univers ne 100 mcg 7-17 03-16 tablet by ity of tablet 00:00: 00:00 mouth [place] 00 :00 every Medical morning. Branch sAXagliptin 2018- 2019- No [id number] 1{tbl} Take 1 Univers -metformin 4-04 07-17 tablet by ity of (KOMBIGLY[place] 00:00[place] 00:[place] 5-1,000 00 :00 daily. Medica l mg per Branch tablet glimepiride Yes 2mg Take 1 Univ ers 2 mg tablet 4-01 tablet by ity of 00:00: mouth [place] 00 daily with Medical breakfast. Branch glimepiride Yes 2mg Take 1 Univ ers 2 mg tablet 4-01 tablet by ity of 00:00: mouth [place] 00 daily with Medical breakfast. Branch glimepiride Yes 2mg Take 1 Univ ers 2 mg tablet 4-01 tablet by ity of 00:00: mouth [place] 00 daily with Medical breakfast. Branch glimepiride Yes 2mg Take 1 Univ ers 2 mg tablet 4-01 tablet by ity of 00:00: mouth [place] 00 daily with Medical breakfast. Branch levothyroxi 2019- No 100ug Take 1 Un sybil ne 100 mcg 2-19 07-17 tablet by ity of tablet 00:00: 00:00 mouth. [place] 00 :00 Medical Branch gabapentin 2019- Yes [id number] 100mg Take 1 Univers 100 mg 2-06 [id number] capsule by ity o f capsule 00:00: mouth at [place] 00 bedtime. Medical Branch gabapentin 2019- Yes [id number] 100mg Take 1 Univers 100 mg 2-06 [id number] capsule by ity o f capsule 00:00: mouth at [place] 00 bedtime. Medical Branch gabapentin 2019-0 Yes [id number] 100mg Take 1 Univers 100 mg 2-06 [id number] capsule by ity o f capsule 00:00: mouth at [place] 00 bedtime. Medical Branch gabapentin 2019- Yes [id number] 100mg Take 1 Univers 100 mg 2-06 [id number] capsule by ity o f capsule 00:00: mouth at [place] 00 bedtime. Medical Branch gabapentin 2019-0 Yes [id number] 100mg Take 1 Univers 100 mg 2-06 [id number] capsule by ity o f capsule 00:00: mouth at [place] 00 bedtime. Medical Branch gabapentin 2019-0 Yes [id number] 100mg Take 1 Univers 100 mg 2-06 [id number] capsule by ity o f capsule 00:00: mouth at [place] 00 bedtime. Medical Branch gabapentin 2019-0 Yes [id number] 100mg Take 1 Univers 100 mg 2-06 [id number] capsule by ity o f capsule 00:00: mouth at [place] 00 bedtime. Medical Branch gabapentin 2019-0 Yes [id number] 100mg Take 1 Univers 100 mg 2-06 [id number] capsule by ity o f capsule 00:00: mouth at [place] 00 bedtime. Medical Branch gabapentin 2019-0 Yes [id number] 100mg Take 1 Univers 100 mg 2-06 [id number] capsule by ity o f capsule 00:00: mouth at [place] 00 bedtime. Medical Branch gabapentin 2019-0 Yes [id number] 100mg Take 1 Univers 100 mg 2-06 [id number] capsule by ity o f capsule 00:00: mouth at [place] 00 bedtime. Medical Branch gabapentin 2019-0 Yes [id number] 100mg Take 1 Univers 100 mg 2-06 [id number] capsule by ity o f capsule 00:00: mouth at [place] [address] bedtime. Medical Branch gabapentin 2019-0 Yes [id number] 100mg Take 1 Univers 100 mg 2-06 [id number] capsule by ity o f capsule 00:00: mouth at [place] [address] bedtime. Medical Branch gabapentin 2019-0 Yes [id number] 100mg Take 1 Univers 100 mg 2-06 [id number] capsule by ity o f capsule 00:00: mouth at [place] 00 bedtime. Medical Branch gabapentin 2019-0 Yes [id number] 100mg Take 1 Univers 100 mg 2-06 [id number] capsule by ity o f capsule 00:00: mouth at [place] 00 bedtime. Medical Branch gabapentin 2019-0 Yes [id number] 100mg Take 1 Univers 100 mg 2-06 [id number] capsule by ity o f capsule 00:00: mouth at [place] [address] bedtime. Medical Branch gabapentin 2019-0 Yes [id number] 100mg Take 1 Univers 100 mg 2-06 [id number] capsule by ity o f capsule 00:00: mouth at [place] 00 bedtime. Medical Branch gabapentin 2019-0 Yes [id number] 100mg Take 1 Univers 100 mg 2-06 [id number] capsule by ity o f capsule 00:00: mouth at [place] 00 bedtime. Medical Branch gabapentin 2019-0 Yes [id number] 100mg Take 1 Univers 100 mg 2-06 [id number] capsule by ity o f capsule 00:00: mouth at [place] 00 bedtime. Medical Branch gabapentin 2019-0 Yes [id number] 100mg Take 1 Univers 100 mg 2-06 [id number] capsule by ity o f capsule 00:00: mouth at [place] 00 bedtime. Medical Branch gabapentin 2019-0 Yes [id number] 100mg Take 1 Univers 100 mg 2-06 [id number] capsule by ity o f capsule 00:00: mouth at [place] 00 bedtime. Medical Branch gabapentin 2019-0 Yes [id number] 100mg Take 1 Univers 100 mg 2-06 [id number] capsule by ity o f capsule 00:00: mouth at [place] [address] bedtime. Medical Branch gabapentin 2019-0 Yes [id number] 100mg Take 1 Univers 100 mg 2-06 [id number] capsule by ity o f capsule 00:00: mouth at [place] [address] bedtime. Medical Branch gabapentin 2019-0 Yes [id number] 100mg Take 1 Univers 100 mg 2-06 [id number] capsule by ity o f capsule 00:00: mouth at [place] [address] bedtime. Medical Branch gabapentin 2019-0 Yes [id number] 100mg Take 1 Univers 100 mg 2-06 [id number] capsule by ity o f capsule 00:00: mouth at [place] [address] bedtime. Medical Branch gabapentin 2019-0 Yes [id number] 100mg Take 1 Univers 100 mg 2-06 [id number] capsule by ity o f capsule 00:00: mouth at [place] [address] bedtime. Medical Branch gabapentin 2019-0 Yes [id number] 100mg Take 1 Univers 100 mg 2-06 [id number] capsule by ity o f capsule 00:00: mouth at [place] [address] bedtime. Medical Branch gabapentin 2019-0 Yes [id number] 100mg Take 1 Univers 100 mg 2-06 [id number] capsule by ity o f capsule 00:00: mouth at [place] [address] bedtime. Medical Branch Immunizations Ordered Filled Immunization Date Status Comments [facility] e Immunization Name Name SARS-COV-2 COVID-19 2020-09-13 [facility] [employer] [facility]00 [facility] SARS-COV-2 COVID-19 2020-09-13 Completed Unive rsity of P[employer]ZER VACCINE 00:00:00 [facility] SARS-COV-2 COVID-19 2020-09-13 Completed Unive rsity of PFIZER VACCINE 00:00:00 [facility] SARS-COV-2 COVID-19 2020-08-23 Completed Unive rsity of PFIZER VACCINE 00:00:00 [facility] SARS-COV-2 COVID-19 2020-08-23 Completed Unive rsity of PFIZER VACCINE 00:00:00 [facility] SARS-COV-2 COVID-19 2020-08-23 Completed Unive rsity of PFIZER VACCINE 00:00:00 [facility] SARS-COV-2 COVID-19 2020-08-23 Completed Unive rsity of PFIZER VACCINE 00:00:00 [facility] SARS-COV-2 COVID-19 2020-08-23 Completed Unive rsity of PFIZER VACCINE 00:00:00 [facility] SARS-COV-2 COVID-19 2020-08-23 Completed Unive rsity of PFIZER VACCINE 00:00:00 [facility] SARS-COV-2 COVID-19 2020-08-23 Completed Unive rsity of PFIZER VACCINE 00:00:00 [facility] Influenza High Dose 2020-03-18 Completed Unive rsity of [place] 00:00:00 [facility] Influenza High Dose 2020-03-18 Completed Unive rsity of [place] 00:00:00 [facility] Influenza High Dose 2020-03-18 Completed Unive rsity of [place] 00:00:00 [facility] Influenza High Dose 2020-03-18 Completed Unive rsity of [place] 00:00:00 [facility] Influenza High Dose 2020-03-18 Completed Unive rsity of [place] 00:00:00 [facility] Influenza High Dose 2020-03-18 Completed Unive rsity of [place] 00:00:00 [facility] Influenza High Dose 2020-03-18 Completed Unive rsity of [place] 00:00:00 [facility] Influenza High Dose 2020-03-18 Completed Unive rsity of [place] 00:00:00 [facility] Influenza High Dose 2020-03-18 Completed Unive rsity of [place] 00:00:00 [facility] Influenza High Dose 2020-03-18 Completed Unive rsity of [place] 00:00:00 [facility] Influenza High Dose 2020-03-18 Completed Unive rsity of [place] 00:00:00 [facility] Influenza High Dose 2020-03-18 Completed Unive rsity of [place] 00:00:00 [facility] Influenza High Dose 2020-03-18 Completed Unive rsity of [place] 00:00:00 [facility] Vital Signs Vital Name Observation Time Observation Value Comments Source Systolic blood 2020-09-09 18:51:00 113 mm[Hg] Univer sity of pressure [facility] Diastolic blood 2020-09-09 18:51:00 67 mm[Hg] Unive rsity of pressure [facility] Heart rate 2020-09-09 18:51:00 62 /min Universi ty of [facility] Respiratory rate 2020-09-09 18:51:00 16 /min Univ ersity of [facility] Body height 2020-09-09 18:51:00 157.5 cm Universi ty of [facility] Body weight 2020-09-09 18:51:00 68.947 kg Universi ty of [place] [facility] [place] BMI 2020-09-09 18:51:00 27.80 kg/m2 Universi ty of [facility] Systolic blood 2020-04-09 16:30:00 122 mm[Hg] Univer sity of pressure [facility] Diastolic blood 2020-04-09 16:30:00 63 mm[Hg] Unive rsity of pressure [facility] Heart rate 2020-04-09 16:30:00 52 /min Universi ty of [facility] Body temperature 2020-04-09 16:30:00 36.67 Rin Univ ersity of [facility] Respiratory rate 2020-04-09 16:30:00 18 /min Univ ersity of [facility] Oxygen saturation in 2020-04-09 16:30:00 96 /min [facility] Arterial blood by [facility] Pulse oximetry Branch Body height 2020-04-07 17:00:00 157.5 cm Universi ty of [place] [facility] [place] Body weight 2020-04-07 17:00:00 67.586 kg Universi ty of [place] [facility] [place] BMI 2020-04-07 17:00:00 27.25 kg/m2 Universi ty of [facility] Systolic blood 2020-03-18 19:53:00 110 mm[Hg] Univer sity of pressure [facility] Diastolic blood 2020-03-18 19:53:00 67 mm[Hg] Unive rsity of pressure [facility] Heart rate 2020-03-18 19:53:00 60 /min Universi ty of [facility] Body height 2020-03-18 19:53:00 160 cm Universi ty of [facility] Body weight 2020-03-18 19:53:00 68.04 kg Universi ty of [facility] BMI 2020-03-18 19:53:00 26.57 kg/m2 Universi ty [facility] Systolic blood 2019-01-10 18:43:00 119 mm[Hg] Univer sity of pressure [facility] Diastolic blood 2019-01-10 18:43:00 73 mm[Hg] Unive rsity of pressure [facility] Heart rate 2019-01-10 18:43:00 64 /min Universi ty [facility] Respiratory rate 2019-01-10 18:43:00 16 /min Univ ersity of [facility] Body height 2019-01-10 18:43:00 160 cm Universi ty of [facility] Body weight 2019-01-10 18:43:[address] [facility] BMI 2019-01-10 18:43:00 28.95 kg/m2 [facility]i ty [facility] Procedures Procedure Date / Time Performing Clinician Source Performed ASSIGNMENT OF BENEFITS 2020-10-13 20:33:40 Doctor Unassigned, No [facility] Branch POCT HEMOGLOBIN A1C TEST 2020-09-09 18:55:00 Wei Jin [facility] EGD (ENDO) 2020-04-09 15:33:28 Coral Adan [facility] POCT GLUCOSE(AGE 2020-04-09 14:30:00 Darell Grant [facility] >30DAYS) Medical Branch COVID-19 (ID NOW RAPID 2020-04-08 20:14:00 Daryn Wilde [facility] TESTING) Medical Branch ASSIGNMENT OF BENEFITS 2020-04-08 19:42:50 Doctor Unassigned, No [facility] Branch DSU PRE-OP 2020-03-31 05:01:00 Doctor Unassigned, No [facility] 2020-03-25 05:01:00 Doctor Unassigned, No [facility] RECORDS [facility] FLU VACC(),65+ 2020-03-18 20:31:45 Wei Jin [facility] YRS,IM,HIGH DOSE QUAD Medical Br anch POCT HEMOGLOBIN A1C TEST 2020-03-18 00:00:00 Wei Jin [facility] DME/SUPPLY JUSTIFICATION 2019-08-21 06:01:00 Doctor Unassigned, No [facility] ASSIGNMENT OF BENEFITS 2019-01-20 14:58:51 Doctor Unassigned, No [facility] POCT HEMOGLOBIN A1C TEST 2019-01-10 00:00:00 Wei Jin [facility] Encounters Start End Encounter Admission Attending Care Care Encounter Source Date/Time Date/Time Type Type Clinicians Facility Department ID 2021-04-24 Outpatient R DENISSE [facility] VIOLETA [id number] Univers 21:24:[address] [facility] 2021-03-17 2021-03-17 [facility] [id number] Univers 11:30:00 11:30:00 WEI [id number] [facility] 2021-03-17 2021-03-17 Outpatient R ASAF [facility] [id number] Univers 11:30:00 11:30:00 WEI [facility] 2020-10-13 2020-10-13 Career Agent Joseph, [facility] [id number] Univers 15:34:13 15:49:13 Visit Daryn Wilde 350.1.1 3.10 ity [facility] 4.2.7.2.686 Junito Marks [phone] Id dical [address] 2020-10-13 2020-10-13 Outpatient R [facility] [id number] Univers 15:30:00 15:30:[id number] [facility] 2020-10-13 2020-10-13 Outpatient R DENISSE [facility] [id number] Univers 15:30:00 15:30:00 DARYN [place] o f [facility] 2020-10-13 2020-10-13 Orders Doctor DELANO [id number] Univers 00:00:00 00:00:00 Only Unassigned, TIMOTHY 350.1.13.10 ity 4.2.7.2.686 [place] [phone] [address] 2020-09-16 2020-09-16 Outpatient R [facility] [id number] Univers 10:00:00 10:00:[id number] [facility] 2020-09-16 2020-09-16 Outpatient [facility] [id number] Univers 10:00:00 10:00:00 WEI [facility] 2020-09-16 2020-09-16 [facility] [id number] Univers 00:00:00 00:00:00 Wei Gutierrez 350.1.13.10 i ty [place] [id number] Me dical nal [address] [place] [address] 2020-09-13 2020-09-13 Outpatient [facility] [id number] Univers 08:50:00 08:50:[address] [facility] 2020-09-09 2020-09-09 Office [facility] [id number] Univers 13:40:25 14:19:16 Visit Wei Gutierrez 350.1.13.10 i ty [place] [phone] Id dical nal [address] [place] [address] 2020-09-09 2020-09-09 Outpatient R [facility] [id number] Univers 13:30:00 13:30:[id number] [facility] 2020-09-09 2020-09-09 Outpatient R [facility] [id number] Univers 13:30:00 13:30:00 WEI [facility] 2020-09-09 2020-09-09 Letter Doctor DELANO [id number] Univers 00:00:00 00:00:00 (Out) Unassigned, TIMOTHY 350.1.13.10 ity of [place] [facility] 4.2.7.2.686 [place] [id number] [address] 2020-09-09 2020-09-09 Letter Doctor WICK [id number] Univers 00:00:00 00:00:00 (Out) Unassigned, TIMOTHY 350.1.13.10 ity of [place] [facility] 4.2.7.2.686 [place] [phone] [address] 2020-08-23 2020-08-23 Outpatient [facility] [id number] Univers 08:50:00 08:50:00 [id number] ity of [facility] 2020-08-23 2020-08-23 Outpatient [facility] [id number] Univers 08:50:00 08:50:00 ity of [facility] 2020-04-09 2020-04-09 [facility] [id number] Univers 09:18:00 11:50:00 Encounter Daryn [place] 350.1.13.10 ity [facility] 4[place]2.[place] [id number] [address] 2020-04-08 2020-04-08 Laboratory Only, Adc Test [facility] 1.2.840. [id number] Univers 14:51:46 15:06:46 Only Daryn Wilde 350.1.1 3.10 ity [place] [id number] [address] 2020-04-08 2020-04-08 Outpatient R [facility] [id number] Univers 14:45:00 14:45:00 [id number] ity of [facility] 2020-04-08 2020-04-08 Outpatient R [facility] [id number] Univers 14:45:00 14:45:00 DARYN [place] o f [facility] 2020-04-08 2020-04-08 Orders Doctor WICK 1.2.840.114 [id number] Univers 00:00:00 00:00:00 Only Unassigned, TIMOTHY 350.1.13.10 ity of [place] [facility] 4.2.7.2.686 [place] [id number] [address] 2020-03-25 2020-03-25 Orders Doctor DELANO 1.2.840.114 [id number] Univers 00:00:00 00:00:00 Only Unassigned, TIMOTHY 350.1.13.10 ity of [place] [facility] 4.2.7.2.686 [place] [phone] [address] 2020-03-18 2020-03-18 Office [facility] [id number] Univers 14:41:54 15:31:22 Visit Wei Gutierrez 350.1.13.10 i ty [place] [id number] [address] 2020-03-18 2020-03-18 Outpatient R [facility] [id number] Univers 14:30:00 14:30:[id number] [facility] 2020-03-18 2020-03-18 Outpatient R [facility] [id number] Univers 14:30:00 14:30:[address] [facility] 2020-02-18 2020-02-18 Telephone [facility] [id number] Univers 00:00:00 00:00:00 Wei Gutierrez 350.1.13.10 i ty [place] [id number] [address] 2020-01-28 2020-01-28 Telephone [facility] [id number] Univers 00:00:00 00:00:00 Wei Gutierrez 350.1.13.10 i ty [place] [phone] Id dic[address] 2019-11-13 2019-11-13 Outpatient R [facility] [id number] Univers 10:30:00 10:30:00 WENTONG ity of [facility] 2019-11-13 2019-11-13 [facility] [id number] Univers 08:03:33 08:33:33 ne Visit [place] [id number] [phone] [address] 2019-09-21 2019-09-21 Telephone Jin, [facility] [id number] Univers 00:00:00 00:00:00 [place] [id number] i [id number] [phone] [address] 2019-09-08 2019-09-08 [facility] [id number] Univers 00:00:00 00:00:00 [place] [id number] i [id number] [phone] [address] 2019-08-29 2019-08-29 Telephone Jin, [facility] [id number] Univers 00:00:00 00:00:00 [place] [id number] i [id number] [phone] [address] 2019-08-28 2019-08-28 Telephone Jin, [facility] [id number] Univers 00:00:00 00:00:00 [place] [id number] [id number] [phone] [address] 2019-08-23 2019-08-23 Telephone Jin, [facility] [id number] Univers 00:00:00 00:00:00 [place] [id number] i [id number] [phone] [facility] [address] [facility] 2019-08-21 2019-08-21 Orders Doctor DELANO [id number] [id number] Univers 00:00:00 00:00:00 Only Unassigned, TIMOTHY [id number] ity of [place] [facility] 4.2.7.2.686 [place] as [phone] [address] 2019-08-21 2019-08-21 Telephone [facility] [id number] Univers 00:00:00 00:00:00 Wei Gutierrez [id number] [id number] [phone] [address] 2019-06-28 2019-06-28 Outpatient R JENNA [facility] [id number] Univers 16:00:00 17:13:18 VASILIY ity of [facility] 2019-01-28 2019-01-28 Telephone [facility] [id number] Univers 00:00:00 00:00:00 Wei Gutierrez [id number] [id number] [phone] [address] 2019-01-20 2019-01-20 Career Agent 1, Adc Lab [facility] [id number] [id number] Univers 10:03:30 10:18:30 Visit Wei Jin [id number] it[id number] [phone] [address] 2019-01-20 2019-01-20 Orders Doctor DELANO 1.2.840.114 [id number] Univers 00:00:00 00:00:00 Only Unassigned, TIMOTHY 350.1.13.10 ity of [place] [facility] 4.2.7.2.686 [place] [phone] [address] 2019-01-10 2019-01-10 Office [facility] 1.2.840.114 [id number] Univers 13:34:35 14:32:49 Visit Wei Gutierrez [id number] i [facility] [place] 4.2.7.2.686 Junito Marks [phone] Id dical nal [address] [facility] Results Test Description Test Time Test Comments Results Result Comments Source POCT HEMOGLOBIN A1C TEST 2020-09-09 18:55:00 Test Item Value Reference Range Interpretation Comme nts POCT HBA1C (test code = 4548-4) 6.7 % 4-6 A Lab Interpretation (test code = 15599-0) Abnormal [facility] HEMOGLOBIN A1C [id number] 18:55:00 Test Item Value Reference Range Interpretation Comments POCT HBA1C (test code = 4548-4) 6.7 % 4-6 A Lab Interpretation (test code = Abnormal 97156-9) [facility] [id number] 14:30:00 Test Item Value Reference Range Interpretation Comments POCT Glu (age>30days) (test code = 14 mg/dL 70-110 A 3342) Lab Interpretation (test code = Abnormal 62806-0) [facility]2020-[facility]-08 20:39:00 Test Item Value Reference Range Interpretation Comments SARS-CoV-2 Rapid ID NOW Not Detected Not Detected (test code = 36594-3) HUNTER (test code = HUNTER) ID NOW COVID-19 Assay is an isothermal nucleic acid amplification test intended for the qualitative detection of nucleic acid from SARS-CoV-2 viral RNA in nasopharyngeal (SOLVENT PROCESS EXTRACTOR OPERATOR) specimens. It is used under Emergency Use Authorization (EUA) by FDA. The limit of detection (LOD) of the assay is 125 Genome Equivalents/mL. A positive result is indicative of the presence of SARS-CoV-2 RNA. ?Clinical correlation with patient history and other diagnostic information is necessary to determine patient infection status. A negative (Not Detected) result does not preclude SARS-CoV-2 infection. In patients with clinical symptoms and other tests that are consistent with SARS-CoV-2 infection, negative results should be treated as presumptive negative and a new specimen should be tested with alternative PCR molecular test. Invalid: Please collect a new specimen for repeat patient testing if clinically indicated. Lab Interpretation Normal (test code = 80497-1) [facility] HEMOGLOBIN A1C [id number] 19:54:00 Test Item Value Reference Range Interpretation Comments POCT HBA1C (test code = 4548-4) 6.3 % 4-6 A Lab Interpretation (test code = Abnormal 37952-4) [facility] HEMOGLOBIN A1C [id number] 19:54:00 Test Item Value Reference Range Interpretation Comments POCT HBA1C (test code = 4548-4) 6.3 % 4-6 A Lab Interpretation (test code = Abnormal 43935-4) [facility] HEMOGLOBIN A1C [id number] 18:56:00 Test Item Value Reference Range Interpretation Comments POCT HBA1C (test code = 4548-4) 6.7 % 4-6 [facility]
--- NOTE | 2021-05-13 09:57 | RAD REPORT ---
EXAM DESCRIPTION: RAD - Chest Single View - 05/08/2021 2:53 pm CLINICAL HISTORY: DYSPNEA COMPARISON: No comparisonsChest Single View dated 04/09/2021; Chest Single View dated 10/07/2020; AAMIR ST PA AND LAT 2 VIEW dated 06/03/2015; CHEST SINGLE VIEW dated 01/22/2015 FINDINGS: Lines: None. Lungs: No evidence of edema or pneumonia. Pleural: No significant pleural effusions or pneumothorax. Cardiac: The heart size is within normal limits. Bones: No acute fractures. Other: IMPRESSION: No acute cardiopulmonary disease.
== END 2021-05-05 02:22 | disposition home or self-care (01) ==
LOC: ER 22:13
DX: J45.901 Unspecified asthma with (acute) exacerbation (principal); E11.9 Type 2 diabetes mellitus without complications; E03.9 Hypothyroidism, unspecified; Z20.822 Contact with and (suspected) exposure to COVID-19
CPT/HCPCS: 93005 ×2; 87040 ×2; 85025; 80048; 36415; 85610; 82565; 80076; 83605; 85730; 84484 ×2; 84145; 83880; 0240U; 71275; 71045; 96374; 99285; Q9967; J2930

== ENCOUNTER 2021-05-15 10:29 | Day surgery (SDC) | payer OTHER ==
[2021-05-14 12:12] LABS: Absolute Lymphocytes (CBC) 1.7 K/uL (0.7-4.9); Basophils % 0.6 % (0-1.3); Lymphocytes % 23.8 % (15.3-44.8); RBC Red Blood Cell Count 3.89 M/uL (3.86-4.86)
[2021-05-14 12:46] LABS: SARS-COV-2 RT PCR NEGATIVE (NEGATIVE)
[2021-05-15] MEDS ORDERED: NA CHLORIDE 0.9% 1,000 ML ONE (10:51)
[2021-05-15 11:14] VITALS: TEMP 98.3
--- NOTE | 2021-05-15 12:33 | P.BOP ---
Preoperative diagnosis: chest wall infected necrotic wound, s/p trauma Postoperative diagnosis: same Primary procedure: SubQ debridement of chest wall infected necrotic wound 3x2x1.5cm Estimated blood loss: <10cc Specimen: culture, Findings: as above Anesthesia: MAC Complications: None Transferred to: Recovery Room
[2021-05-15] MEDS ORDERED: KETAMINE HCL 500 MG/5 ML VIAL ONE (12:45)
[2021-05-15] MEDS ORDERED: dexAMETHasone 4 MG/ML VIAL ONE (12:45)
[2021-05-15] MEDS ORDERED: ONDANSETRON 4 MG/2 ML VIAL ONE (12:45)
[2021-05-15] MEDS ORDERED: LIDOCAINE 2% MPF 5 ML VIAL ONE (12:45)
[2021-05-15] MEDS ORDERED: propofoL 200 MG/20 ML VIAL IV ONE (12:45)
[2021-05-15] MEDS ORDERED: FENTANYL CITR 100 MCG/2 ML ONE (12:46)
[2021-05-15] MEDS ORDERED: KETOROLAC 30 MG/ML INJ ONE (12:47)
[2021-05-15] MEDS ORDERED: BUPIVACAINE 0.5% PF 10 ML VIAL ONE (12:50)
[2021-05-15] MEDS ORDERED: NS 0.9% VIAL 10 ML ONE (13:10)
[2021-05-15] MEDS ORDERED: CEFAZOLIN SODIUM 1 GM/VIAL ONE (13:10)
[2021-05-15 15:05] VITALS: O2SAT 96
[2021-05-15 15:06] VITALS: BP 115/66
--- NOTE | 2021-05-16 00:31 | OP ---
Date of Procedure: 05/15/2021 Surgeon: Rohan Villanueva MD Preoperative Diagnosis: Necrotic nonhealing wound over the right upper quadrant abdominal area. Postoperative Diagnosis: Necrotic nonhealing wound over the right upper quadrant abdominal area. Procedure: Excisional debridement of necrotic infected wound on the abdominal wall right upper quadr ant. It is about 3 x 2 x 1.5 cm. Findings: Necrotic wound, small abscess. Ebl: Less than 10 cc. Indication: This is the case of a 75-year-old patient, who came to us with a nonhealing wound on the right upper chest. She had a traumatic event about a month ago. Something caused abrasion over alonzo t where the patient had a previous scar from surgeries years ago. Developed a necrotic wound in that region. Despite antibiotics and wound care, it is still giving her purulent discharge with a necrot ic eschar present in that region. She was advised to have it debrided. She does not tolerate the pa in at the office. She wanted to have it done under anesthesia, so we had to bring her to surgery. T he benefits, alternatives, and risks of excisional debridement of the necrotic infected wound were fu lly explained, which include, but not limited to infection, bleeding, damage to adjacent structures, anesthesia, complication, nonhealing wound, ND, and . She also understands this may not relieve symptoms. She might need more than one surgical intervention and she would require wound care. She signed the consent. The area of concern was marked by me and the patient in the holding room. Procedure In Detail: The patient was brought to the operating room, placed in supine position. Anes thesia was done without complication. Abdominal area was prepped and draped in sterile fashion. Loc al anesthesia was applied followed by sharp incision of the skin to remove all the necrotic tissue pr esent. There was a previous eschar there from the surgeries many years ago that also was excised wit h the specimen, at least that area, since it goes all the way down to subcutaneous tissue and this ab scess goes into the subcutaneous tissue. The area was irrigated. Cultures were obtained. Hemostasi s obtained and the area was packed with wet-to-dry dressing. The patient tolerated the procedure wel l. The patient sent awake to recovery in stable condition. Disposition: Home. Activity: As tolerated. No heavy lifting. Plan: Follow up in my office in 1 week. Call for appointment at [phone]. The patient currently is on antibiotics by mouth, so we going to add the Bactroban ointment to the area and we are going to g darlene her some Tylenol No. 3 for pain. She is going to apply that and gauze daily. VERONICA/JIM Voice ID: [id number] Report ID: [id number]
== END 2021-05-15 14:20 | disposition home or self-care (01) ==
LOC: OR 10:29
PROVIDERS: ATTEND Surgery
PROC: 0JB80ZZ Excision of Abdomen Subcutaneous Tissue and Fascia, Open Approach (ICD-10-PCS; principal; 2021-05-15 12:30)
DX: S31.100A Unspecified open wound of abdominal wall, right upper quadrant without penetration into peritoneal cavity, initial encounter (principal); I96 Gangrene, not elsewhere classified
CPT/HCPCS: 87070; 85025; 80048; 36415; 87205; 82947; 88304; 87075; 0241U; 11042; J2704; J3010; J7030; J2405; J0690; J1100

== ENCOUNTER 2021-07-23 10:15 | Day surgery (SDC) | payer OTHER ==
[2021-07-20 11:18] LABS: Absolute Lymphocytes (CBC) 1.8 K/uL (0.7-4.9); Lymphocytes % 25.2 % (15.3-44.8); MPV 7.9 fL (7.6-11.3); RBC Red Blood Cell Count 4.01 M/uL (3.86-4.86)
[2021-07-20 11:25] LABS: Protime INR 1.05
[2021-07-20 11:35] LABS: Potassium 3.9 mmol/L (3.5-5.1)
[2021-07-23] MEDS ORDERED: NA CHLORIDE 0.9% 500 ML ONE (10:46)
[2021-07-23] MEDS ORDERED: FENTANYL CITR 100 MCG/2 ML ONE (10:57)
[2021-07-23] MEDS ORDERED: HEPA 1000U/500MLS 2,000 UNIT/1,000 ML BAG IV ONE (10:57)
[2021-07-23] MEDS ORDERED: LIDOCAINE 1% 20 ML MDV ONE (10:58)
[2021-07-23] MEDS ORDERED: HEPARIN 5000 UNIT/ML 1 ML VIAL ONE (10:58)
[2021-07-23] MEDS ORDERED: NITROGLYCERIN/D5W 25 MG/250 ML BTL IV ONE (10:59)
[2021-07-23] MEDS ORDERED: VERAPAMIL HCL 10 MG/4 ML VIAL IV ONE (10:59)
[2021-07-23] MEDS ORDERED: MIDAZOLAM HCL 2 MG/2 ML INJ ONE (10:59)
[2021-07-23] MEDS ORDERED: NITROGLYCERIN 100 MCG/ML SYR (for cath lab use only) IV ONE (10:59)
[2021-07-23] MEDS ORDERED: ATROPINE SULF 1 MG/10 ML SYR IV ONE (10:59)
[2021-07-23] MEDS ORDERED: NA CHLORIDE 0.9% 0 ML IV ONE (11:00)
[2021-07-23 11:36] VITALS: TEMP 97.4
[2021-07-23] MEDS ORDERED: DIPHENHYDRAMINE 50 MG/ML VIAL ONE (12:44)
[2021-07-23] MEDS ORDERED: METHYLPREDNISOLONE 125 MG INJ ONE (12:45)
[2021-07-23 14:21] VITALS: O2SAT 97
[2021-07-23 15:24] VITALS: BP 138/72
--- NOTE | 2021-07-23 17:52 | OP ---
Date of Procedure: 07/23/2021 Surgeon: SOCORRO MEZA Procedures Performed: 1.Selective coronary angiogram. 2.Left heart catheterization. 3.Right heart catheterization. Access: 1.Right radial artery 6-[place] closed with TR band. 2.Right IJ 7-[place] closed with manual pressure. Complications: None. Bleeding: Less than 10 mL. Description Of Procedure: After risks, benefits, and alternatives were explained, patient agreed to procedure and signed informed consent. Fentanyl and Versed were given in incremental doses to achiev e adequate moderate sedation with a total sedation time being at 20 minutes and then accessed the rig ht radial artery using pediatric micropuncture kit and placed a 6-[place] slender sheath and accessed right IJ using micropuncture kit and ultrasound guidance and placed a 7-[place] Foley sheath and to ok a 5-[place] 4.0 catheter to the aortic root over a Wholey wire to the radial access, engaged left main, right coronary artery, took standard views and the catheter was pushed into the LV. LVEDP was measured and going back, there was no gradient and we took the catheter out. Sheath was removed , and placed TR band with good hemostasis and took the 7-[place] balloon tip Pickerel-Wesley catheter throug h the IJ access into the RA, RV, PA and wedge waveform and pressures were recorded as well as a PA sa t obtained for cardiac output measurement by Adelia method. Then removed the Pickerel, sheath was removed. Manual pressure was applied with good hemostasis. Findings: 1.Left main is normal. 2.LAD, proximally diffuse 10% to 20% stenosis and diagonal branches are normal. The mid LAD has als o diffuse 10% to 20% stenosis with good GI-3 flow throughout. 3.Left circumflex is a moderate-size nondominant with no significant disease. 4.RCA; very large vessel, dominant circulation with proximal 10%, otherwise, luminal irregularities. 5.LVEDP normal at 9 mmHg. 6.Right heart cath measurements; RA was 4. The RV was 36/6 with mean of 6. The PA is 34/9 with a m duyen of 19. Pulmonary wedge pressure was 8 mmHg. Conclusion: 1.No significant coronary artery disease. 2.Normal filling pressures. Recommendation: Pulmonary evaluation. SR/MODL Voice ID: [id number] Report ID: [id number]
== END 2021-07-23 15:10 | disposition home or self-care (01) ==
LOC: CCL 10:15
PROVIDERS: ATTEND Internal Medicine
DX: I25.110 Atherosclerotic heart disease of native coronary artery with unstable angina pectoris (principal); I27.20 Pulmonary hypertension, unspecified; I34.8 Other nonrheumatic mitral valve disorders; Z20.822 Contact with and (suspected) exposure to COVID-19
CPT/HCPCS: 93005; 85025; 80048; 36415; 85610; 82947; 85730; 93456; U0002; C1893; J1644 ×2; J7040; J1200; J2250; J2930; J3010